=== PATIENT | female | born 1970 | race Caucasian/White ===

== ENCOUNTER 2022-12-14 08:47 | Emergency (ER) | payer SELFPAY ==
[2022-12-14] MEDS ORDERED: Lidocaine 2% 5 ML SDV INJECT ONE (09:49)
[2022-12-14] MEDS ORDERED: Lidocaine 1% 5 ML VIAL INJECT ONE (09:58)
[2022-12-14] MEDS ORDERED: Lidocaine 1% 5 ML VIAL ONE (09:58)
[2022-12-14] MEDS ORDERED: Acetaminophen/HYDROcodone 325-10 MG Tab PO ONE (10:48)
[2022-12-14] MEDS ORDERED: Bacitracin Oint 1 GM U/D Packet TOP ONE (10:50)
== END 2022-12-14 11:10 | disposition home or self-care (01) ==
LOC: MW.ED 08:47
DX: L03.011 Cellulitis of right finger (principal); L02.511 Cutaneous abscess of right hand; E78.00 Pure hypercholesterolemia, unspecified; I10 Essential (primary) hypertension; E11.9 Type 2 diabetes mellitus without complications; F17.210 Nicotine dependence, cigarettes, uncomplicated; Z88.0 Allergy status to penicillin; Z88.5 Allergy status to narcotic agent
CPT/HCPCS: 10060; 99283; A9270; J3490

== ENCOUNTER 2023-03-28 13:51 | Observation (INO) | payer SELFPAY ==
[2023-03-28] MEDS ORDERED: Sodium Chloride 0.9% 10 ML Syringe FLUSH PRN (13:59)
[2023-03-28] MEDS ORDERED: Sodium Chloride 0.9% 2.5 ML Syringe FLUSH PRN (13:59)
[2023-03-28] MEDS ORDERED: Sodium Chloride 0.9% 1,000 ML IV ONE ×2 (14:01→15:12)
[2023-03-28 14:10] LABS: APPEARANCE,URINE CLEAR; BILIRUBIN,URINE NEGATIVE (NEGATIVE); COLOR,URINE YELLOW; GLUCOSE,URINE >=1000 mg/dL (NEGATIVE); KETONES,URINE NEGATIVE (NEGATIVE); LEUKOCYTE ESTERASE,URINE NEGATIVE (NEGATIVE); NITRITE,URINE NEGATIVE (NEGATIVE); OCCULT BLOOD,URINE NEGATIVE (NEGATIVE); PH,URINE 5.5 (5.0-8.0); PROTEIN,URINE NEGATIVE (NEGATIVE); UROBILINOGEN,URINE 0.2 EU/dL (<2.0)
[2023-03-28 14:12] LABS: BASE EXCESS VENOUS -8.6 (-2.0-3.0); BASOPHILS ABSOLUTE AUTO 0.1 K/uL (0.0-0.1); BASOPHILS PERCENT AUTO 0.6 % (0.0-1.5); EOSINOPHILS ABSOLUTE AUTO 0.1 K/uL (0.0-0.7); EOSINOPHILS PERCENT AUTO 0.6 % (0.0-7.0); HEMATOCRIT 45.5 % (36.0-46.0); HEMOGLOBIN 15.2 g/dL (12.0-16.0); LYMPHOCYTES ABSOLUTE AUTO 1.2 K/uL (0.6-2.4); LYMPHOCYTES PERCENT AUTO 13.7 % (16.0-40.0); MEAN CORPUSCULAR HEMOGLOBIN 28.2 pg (27.0-32.0); MEAN CORPUSCULAR HGB CONC 33.4 g/dL (31.0-37.0); MEAN CORPUSCULAR VOLUME 84.4 fL (80.0-98.0); MONOCYTES ABSOLUTE AUTO 0.5 K/uL (0.0-0.8); MONOCYTES PERCENT AUTO 5.7 % (0.0-15.0); NEUTROPHILS ABSOLUTE AUTO 6.9 K/uL (1.4-5.7); NEUTROPHILS PERCENT AUTO 79.4 % (48.0-80.0); PH,VENOUS 7.3 (7.31-7.41); PLATELET COUNT,PLT 178 K/uL (150-400); RED BLOOD CELL COUNT 5.39 M/uL (4.30-5.90)
[2023-03-28 14:20] LABS: BACTERIA,URINE RARE (NEGATIVE); EPITHELIAL CELLS,URINE FEW (NONE-FEW); RBC,URINE 0-1 (0-2/HPF); WBC,URINE 0-1 (0-5/HPF)
[2023-03-28 14:36] LABS: A/G RATIO 0.7 (0.9-1.6); ALANINE AMINOTRANSFERASE,ALT 60 IU/L (14-63); ALKALINE PHOSPHATASE 164 U/L (46-116); ASPARTATE AMNIOTRANSFERASE,AST 37 IU/L (15-37); BILIRUBIN TOTAL 0.4 mg/dL (0.2-1.0); BLOOD UREA NITROGEN,BUN 10 mg/dL (7.0-18.0); CALCIUM 8.3 mg/dL (8.5-10.1); CARBON DIOXIDE,CO2 15.9 mmol/L (21.0-32.0); CHLORIDE,CL 96 mmol/L (98-107); CREATININE 1.2 mg/dL (0.6-1.0); EST CRCL DRUG DOSING (CG) 44.85 mL/min; POTASSIUM,K 4.6 mmol/L (3.5-5.1); PROTEIN TOTAL,TP 7.2 g/dL (6.4-8.2); SODIUM,NA 127 mmol/L (136-145)
[2023-03-28 14:42] LABS: ESTIMATED GFR 54 mL/min (>60); ETHANOL BLOOD MEDICAL < 3.0 mg/dL
[2023-03-28 14:55] LABS: GLUCOSE RANDOM 850 mg/dL (74-106)
[2023-03-28] MEDS ORDERED: Glucagon,Human Recombinant 1 MG Vial IM PRN ×2 (15:13→22:52)
[2023-03-28] MEDS ORDERED: 50% Dextrose in Water 50 ML Syringe IVPUSH PRN ×2 (15:13→22:52)
[2023-03-28] MEDS ORDERED: Insulin Regular, Human 100 Units/ML 10 ML Vial IVPUSH ONE (15:13)
[2023-03-28] MEDS ORDERED: Iopamidol 755 MG/ML 500 ML Multipack Bottle IVPUSH ONE (15:22)
[2023-03-28] MEDS ORDERED: Enoxaparin 40 MG/0.4 ML Syringe SUBCUT SCH (18:00)
[2023-03-28 18:53] LABS: CALCIUM 8.5 mg/dL (8.5-10.1); CARBON DIOXIDE,CO2 25.2 mmol/L (21.0-32.0); EST CRCL DRUG DOSING (CG) 53.82 mL/min; POTASSIUM,K 3.9 mmol/L (3.5-5.1)
[2023-03-28] MEDS: Lactated Ringers 1,000 ML IV SCH (18:54)
[2023-03-28 19:57] LABS: HEMOGLOBIN A1C >14.0 %
[2023-03-28] MEDS ORDERED: Insulin Glargine,Hum.Rec.Anlog 100 UNIT/ML 3 ML Pen SUBCUT ONE (23:00)
[2023-03-28] MEDS ORDERED: Insulin Aspart 100 Units/ML 3 ML Pen SUBCUT ONE (23:00)
[2023-03-28] MEDS: Nystatin Topical Powder 15 GM Bottle TOP SCH (23:39)
[2023-03-29] MEDS ORDERED: Insulin Aspart 100 Units/ML 3 ML Pen SUBCUT ONE ×3 (03:00→23:00)
[2023-03-29] MEDS: Lactated Ringers 1,000 ML IV SCH (03:29)
[2023-03-29] MEDS: Nystatin Topical Powder 15 GM Bottle TOP SCH ×2 (06:43→14:07)
[2023-03-29 06:54] LABS: BASOPHILS PERCENT AUTO 0.5 % (0.0-1.5); EOSINOPHILS ABSOLUTE AUTO 0.2 K/uL (0.0-0.7); EOSINOPHILS PERCENT AUTO 3.1 % (0.0-7.0); HEMATOCRIT 44.3 % (36.0-46.0); HEMOGLOBIN 15.3 g/dL (12.0-16.0); LYMPHOCYTES ABSOLUTE AUTO 3.4 K/uL (0.6-2.4); LYMPHOCYTES PERCENT AUTO 44.5 % (16.0-40.0); MEAN CORPUSCULAR HEMOGLOBIN 28.2 pg (27.0-32.0); MEAN CORPUSCULAR HGB CONC 34.5 g/dL (31.0-37.0); MEAN CORPUSCULAR VOLUME 81.7 fL (80.0-98.0); MONOCYTES ABSOLUTE AUTO 0.6 K/uL (0.0-0.8); NEUTROPHILS ABSOLUTE AUTO 3.4 K/uL (1.4-5.7); NEUTROPHILS PERCENT AUTO 43.9 % (48.0-80.0); PLATELET COUNT,PLT 183 K/uL (150-400); RED BLOOD CELL COUNT 5.42 M/uL (4.30-5.90); WHITE BLOOD CELL COUNT,WBC 7.66 K/uL (4.0-11.0)
[2023-03-29 07:14] LABS: CALCIUM 8.9 mg/dL (8.5-10.1); CARBON DIOXIDE,CO2 25.7 mmol/L (21.0-32.0); CREATININE 0.7 mg/dL (0.6-1.0); EST CRCL DRUG DOSING (CG) 76.88 mL/min; POTASSIUM,K 3.6 mmol/L (3.5-5.1)
[2023-03-29] MEDS ORDERED: Acetaminophen 325 MG Tab PO ONE (08:17)
[2023-03-29] MEDS ORDERED: Glucagon,Human Recombinant 1 MG Vial IM PRN ×3 (08:17→11:12)
[2023-03-29] MEDS ORDERED: 50% Dextrose in Water 50 ML Syringe IVPUSH PRN ×3 (08:17→11:12)
[2023-03-29] MEDS ORDERED: Insulin Aspart 100 Units/ML 3 ML Pen SUBCUT SCH ×3 (08:19→11:30)
[2023-03-29] MEDS ORDERED: Pantoprazole 40 MG Tab.CR PO SCH (09:00)
[2023-03-29] MEDS ORDERED: Insulin Glargine,Hum.Rec.Anlog 100 UNIT/ML 3 ML Pen SUBCUT SCH (21:00)
[2023-03-29] MEDS ORDERED: Insulin Glargine,Hum.Rec.Anlog 100 UNIT/ML 3 ML Pen SUBCUT ONE (23:00)
== END 2023-03-29 16:10 | disposition home or self-care (01) ==
LOC: MW.ED 13:51 → MW.MS 16:37
PROVIDERS: ADMIT Internal Medicine; ATTEND Internal Medicine
DX: N17.9 Acute kidney failure, unspecified (principal); I10 Essential (primary) hypertension; E78.00 Pure hypercholesterolemia, unspecified; E11.9 Type 2 diabetes mellitus without complications; Z88.0 Allergy status to penicillin; Z88.6 Allergy status to analgesic agent
CPT/HCPCS: 36415; 71045; 72128; 73030; 74177; 80048; 80053; 80307; 81001; 82009; 82550; 82803; 82947; 83036; 83605; 85025; 96360; 96361; 96372; 99285; A9270; G0378; J1650; J1815; J3490; J7030; J7120; Q9967; 99284